=== PATIENT | female | born 1990 | race Caucasian/White ===

== ENCOUNTER 2016-12-26 00:42 | Emergency (ER) | payer OTHER ==
[~2016-12-26] VITALS: Ht 154.9 cm; Wt 87.1 kg
[~2016-12-26 00:42] MED LIST: ATIVAN0.5 M1 PO; FOLIC ACID1 M1 PO; IMPLANON; KETOROLAC TROME10 M1 PO; ONE DAILY MULT1 EAC2 PO; PERCOCET 5-3251 EACH PO; VITAMIN B-1100 MG PO
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
[2016-12-26 01:52] LABS: ABSOLUTE BASOPHIL COUNT 0.1 /CUMM (0.0-0.2); ABSOLUTE EOSINOPHIL COUNT 0 /CUMM (0.0-0.7); ABSOLUTE GRANULOCYTE CT 12.7 /CUMM (1.4-6.5); ABSOLUTE LYMPH COUNT 1.3 /CUMM (1.2-3.4); ABSOLUTE MONOCYTE COUNT 0.7 /CUMM (0.10-0.60); BASOPHIL % 0.4 % (0.0-2.0); EOSINOPHIL % 0.1 % (0-5); GRANULOCYTE % 85.8 % (42.2-75.2); HEMATOCRIT 48.2 % (37-47); MEAN CORPUSCULAR HGB CONC 33.7 G/DL (33.0-37.0); MEAN PLATELET VOLUME 8.1 FL (7.4-10.4); PLATELET COUNT 210 /CUMM (130-400); RBC DISTRIBUTION WIDTH 13.1 % (11.5-14.5); RED BLOOD CELL CT 4.92 /CUMM (4.20-5.40); WHITE BLOOD CELL COUNT 14.8 /CUMM (4.8-10.8)
[2016-12-26 13:49] VITALS: BP 134/82
== END 2016-12-26 14:08 | disposition left against medical advice (07) ==
LOC: ERH 00:42
PROVIDERS: Emergency Medicine
DX: F10.129 Alcohol abuse with intoxication, unspecified (principal); F14.10 Cocaine abuse, uncomplicated; F11.10 Opioid abuse, uncomplicated
CPT/HCPCS: 80307; 81025; 96374; G0480; J2310

== ENCOUNTER 2017-10-28 15:47 | Inpatient (IN) | payer OTHER ==
[~2017-10-28] VITALS: Ht 154.9 cm; Wt 104.3 kg
[~2017-10-28 15:47] MED LIST changes: +ABILIFY5 M1 PO; +ALBUTEROL2.5 MG/3 M INH; +ALBUTEROL2.5 MG/3 M INH/SOL; +AMOXICILLIN875 M1 PO; +MEDROL4 M2 PO; +METHADONE10 MG/1 M2 PO; +NEBULIZER MACHINE; +PREDNISONE10 M2 PO; +PREDNISONE5 M1 PO; +PROAIR HFA8.5 GM INH; +VALACYCLOVIR500 M1 PO
--- NOTE | 2017-10-28 16:10 | ED DYSPNEA/ASTHMA COMPLAINT ---
History of Present Illness General Chief Complaint: General Adult Stated Complaint: BIBA FOR DIFFICULTY BREATHING Source: patient, old records, EMS Exam Limitations: no limitations Vital Signs & Intake/Output Vital Signs & Intake/Output Vital Signs Date Time Temp Pulse Resp B/P B/P Pulse O2 O2 Flow FiO2 Mean Ox Delivery Rate 10/28 1708 91 Nasal 4.0L Cannula 10/28 1707 106 22 124/75 91 Nasal 4.0L Cannula 10/28 1701 92 Nasal 4.0L Cannula 10/28 1551 99.7 113 18 119/80 94 Nasal 2.0L Cannula Allergies Coded Allergies: hydrocodone (Intermediate, vomiting 06/11/16) ibuprofen (Intermediate, vomiting 06/11/16) Reconcile Medications Aripiprazole (Abilify) 5 MG TABLET 1 TAB PO QAM Mental . Bupropion HCl (Bupropion XL) 150 MG TAB.ER.24H 1 TAB PO DAILY MENTAL HEALTH ( Reported) Buspirone HCl 5 MG TABLET 1 TAB PO BID MENTAL HEALTH (Reported) Crisaborole (Eucrisa) 2 % OINT...G. 1 VAZQUEZ TOP BID SKIN (Reported) [IMPLANON] Unknown CONTROL (Reported) Methadone HCl 10 MG/ML ORAL.CONC 50 MG PO DAILY MAINTENCE (Reported) Valacyclovir HCl (Valacyclovir) 500 MG TABLET 1 TAB PO DAILY HERPES (Reported ) Triage Nurses Notes Reviewed? yes Onset: Evening Duration: hour(s):, constant, continues in ED Timing: recent history Severity: moderate Activities at Onset: rest Prior Episodes/Possible Cause: illness exposure Modifying Factors: Worsens With: movement. Associated Symptoms: anxiety, cough, weakness LMP (ages 10-50): unknown : No Patient currently breastfeeds: No HPI: 1 day prior to admission patient completed [facility] detox program [facility] [place]. Prior to leaving she complained of nausea and vomiting and later developed shortness of breath. Shortness of breath continues until prior to admission prompting call to 911. She denies fever chills chest pain headache dysuria rash bleeding. Past History Travel History Traveled to [place] past 21 day No Medical History Any Pertinent Medical History? see below for history Neurological: TBI EENT: NONE Cardiovascular: NONE Respiratory: TRACH Gastrointestinal: pancreatitis Hepatic: NONE Renal: nephrolithiasis Musculoskeletal: FRACTURE- LEFT LEG & JAW Psychiatric: anxiety, depression, ETOH herpes Endocrine: NONE Blood Disorders: NONE Cancer(s): NONE VISUAL MERCHANDISE MANAGER/Reproductive: genital herpes History of MRSA: No History of VRE: No History of CDIFF: No Surgical History Surgical History: non-contributory Psychosocial History Who do you live with Mother Services at Home None What is your primary language Kuwaiti Family History Family History, If Any: FATHER (lung cancer). . MOTHER Relation not specified for: Cancer of mouth Hx Contributory? No Review of Systems Review of Systems Constitutional: Reports: no symptoms. EENTM: Reports: no symptoms. Respiratory: Reports: see HPI, cough, short of breath. Cardiovascular: Reports: no symptoms. GI: Reports: see HPI, nausea, vomiting. Genitourinary: Reports: no symptoms. Musculoskeletal: Reports: no symptoms. Skin: Reports: no symptoms. Neurological/Psychological: Reports: no symptoms. Hematologic/Endocrine: Reports: no symptoms. Immunologic/Allergic: Reports: no symptoms. All Other Systems: Reviewed and Negative Physical Exam Physical Exam General Appearance: well developed/nourished, alert, awake, anxious, moderate distress, obese Head: atraumatic, normal appearance Eyes: Bilateral: normal appearance, PERRL, EOMI. Ears, Nose, Throat: normal pharynx, normal ENT inspection, hearing grossly normal Neck: normal inspection, supple, full range of motion, no midline tenderness Respiratory: chest non-tender, quiet respiration, decreased breath sounds, rhonchi, respiratory distress Cardiovascular: regular rate/rhythm, normal peripheral pulses, norml femoral pulses equa Peripheral Pulses: 4+ carotid (R), 4+ carotid (L) Gastrointestinal: normal bowel sounds, soft, non-tender, no organomegaly Extremities: normal inspection, normal capillary refill, normal range of motion, no edema, no ligament instability Neurologic/Psych: no motor/sensory deficits, awake, alert, oriented x 3, normal gait, normal mood/affect, pants closer II-XII nml as tested Skin: intact, normal color, diaphoresis Lymphatic: no anterior cervical brice Core Measures ACS in differential dx? No CVA/TIA Diagnosis No Sepsis Present: No Sepsis Focused Exam Completed? No Progress Differential Diagnosis: asthma, bronchitis, CHF, COPD, pulmonary embolism, pneumonia Plan of Care: Orders Procedure Date/time Status Regular Diet 10/28 D Active Patient Data 10/[address] CHEST W IV CONTRAST 10/28 1829 Active OXYGEN SETUP (GEN) 10/28 1800 Active Saline Lock 10/28 1800 Active Admit to inpatient 10/28 1800 Active Vital Signs 10/28 1800 Active Activity/Ambulation 10/28 1800 Active BLOOD CULTURE 10/28 1800 Active Code Status 10/28 1800 Active Intake & Output 10/28 1653 Active FingerStick- Glucose 10/28 1557 Active ARTERIAL BLOOD GAS (GEN) 10/28 1552 Active URINE DRUG SCREEN FOR ER ONLY 10/28 155 Complete TROPONIN LEVEL 10/28 1552 Complete MAGNESIUM 10/28 1552 Complete LIPASE 10/28 1552 Complete HUMAN BETA HCG SCREEN 10/28 155 Complete D-DIMER 10/28 155 Complete COMPREHENSIVE METABOLIC PANEL 10/28 155 Complete CBC WITHOUT DIFFERENTIAL 10/28 155 Complete B-TYPE NATRIURETIC PEP (BNP) 10/28 155 Complete EKG 10/28 155 Active Laboratory Tests 10/28/17 1628: Urine Opiates Screen < 100, Methadone Screen > 735 H, Barbiturate Screen < 60, Ur Phencyclidine Scrn < 6.00, Amphetamines Screen 107, U Benzodiazepines Scrn > 800 H, Urine Cocaine Screen 147, Urine Cannabis Screen < 5.00 10/28/17 1613: Anion Gap 12, Estimated GFR > 60, BUN/Creatinine Ratio 10.0, Glucose 148 H, Calcium 9.1, Magnesium 2.0, Total Bilirubin 0.4, AST 24, ALT 44, Alkaline Phosphatase 120, Troponin I < 0.01, [id number] Pept 1130 H, Total Protein 7.7, Albumin 4.5, Globulin 3.2, Albumin/Globulin Ratio 1.4, Lipase 23, Total Beta HCG NEGATIVE, D-Dimer High Sensitivty < 200, CBC w Diff NO MAN DIFF REQ, RBC 4.93, MCV 94.6, MCH 31.7 H, MCHC 33.5, RDW 14.0, MPV 8.5, Gran % 84.7 H, Lymphocytes % 10.3 L, Monocytes % 4.4, Eosinophils % 0, Basophils % 0.6, Absolute Granulocytes 6.4, Absolute Lymphocytes 0.8 L, Absolute Monocytes 0.3, Absolute Eosinophils 0, Absolute Basophils 0 10/28/17 1555: pH 7.35, pCO2 56 H, pO2 72 L, HCO3 30 H, ABG O2 Sat (Measured) 89.0 L, P-50 (Temp Corrected) Y, Carboxyhemoglobin 4.3, O2 Concentration % 3L, Temperature 99.7, O2 Delivery Method NC, Phlebotomy Draw Site RIGHT RADIAL Microbiology 10/28 1799 BLOOD: Blood Culture - ORD 10/28 1799 BLOOD: Blood Culture - ORD Diagnostic Imaging: Viewed by Me: Radiology Read. Discussed w/RAD: Radiology Read. Initial ED EKG: normal axis, normal intervals, normal p-waves, normal QRS complex, normal sinus rhythm, rate (sinus tachycardia) Prior EKG: unchanged Rhythm Strip: sinus tachycardia Departure Departure Time of Disposition: 1810 Disposition: STILL A PATIENT Condition: Stable Clinical Impression Primary Impression: Dyspnea and respiratory abnormalities Secondary Impressions: Acute respiratory acidosis, Aspiration pneumonia, Nausea and vomiting Referrals: Karlee VASQUEZ,Karlee (PCP/Family) Departure Forms: Customer Survey General Discharge Information Admission Note Spoke With: Sacha Foley MD Documentation of Exam: Documentation of any treatments & extenuating circumstances including Concerns Regarding Discharge (functional status, medication knowledge or non-compliance, living conditions, etc.) that warrant an admission rather than observation: Supplemental oxygen IV steroids IV antibiotics. Agonist nebs pulmonary evaluation medication adjustment continuing care discharge planning Critical Care Note Critical Care Note Critical Care Time: 30-74 min (45)
[2017-10-28 16:20] LABS: ABSOLUTE BASOPHIL COUNT 0 /CUMM (0.0-0.2); ABSOLUTE EOSINOPHIL COUNT 0 /CUMM (0.0-0.7); ABSOLUTE GRANULOCYTE CT 6.4 /CUMM (1.4-6.5); ABSOLUTE LYMPH COUNT 0.8 /CUMM (1.2-3.4); ABSOLUTE MONOCYTE COUNT 0.3 /CUMM (0.10-0.60); BASOPHIL % 0.6 % (0.0-2.0); EOSINOPHIL % 0 % (0-5); HEMATOCRIT 46.6 % (37-47); MEAN CORPUSCULAR HGB 31.7 PG (27.0-31.0); MEAN CORPUSCULAR HGB CONC 33.5 G/DL (33.0-37.0); MEAN CORPUSCULAR VOLUME 94.6 FL (81.0-99.0); MEAN PLATELET VOLUME 8.5 FL (7.4-10.4); PLATELET COUNT 189 /CUMM (130-400); RED BLOOD CELL CT 4.93 /CUMM (4.20-5.40); WHITE BLOOD CELL COUNT 7.6 /CUMM (4.8-10.8)
[2017-10-28 16:32] LABS: GRANULOCYTE % 84.7 % (42.2-75.2)
[2017-10-28] MEDS ORDERED: BUPROPION XL150 MG PO (17:47)
[2017-10-28] MEDS ORDERED: EUCRISA60 GM TOP (17:48)
[2017-10-28] MEDS ORDERED: BUSPIRONE HCL5 M1 PO (17:48)
--- NOTE | 2017-10-28 17:58 | RADIOLOGY REPORT ---
EXAMINATION: XR PORTABLE CHEST CLINICAL INFORMATION: Shortness of breath with nausea and vomiting. COMPARISON: Chest radiograph 05/28/2017. TECHNIQUE: Portable frontal view of the chest was obtained. FINDINGS: The lungs are underinflated but clear of focal consolidation. No pleural effusion. Cardiomediastinal silhouette and pulmonary vasculature are within normal limits. No acute osseous finding. IMPRESSION: No acute cardiopulmonary disease.
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
--- NOTE | 2017-10-28 19:56 | CT SCAN REPORT ---
EXAMINATION: CT CHEST WITH CONTRAST CLINICAL INFORMATION: Nausea and vomiting with shortness of breath. COMPARISON: CT chest 05/01/2017. Chest Dated earlier on 10/28/2017. TECHNIQUE: Multidetector volumetric CT imaging of the chest was obtained after the administration of 95 mL of Optiray 320 intravenous contrast without immediate adverse reactions. Axial MIP volume rendering provided. Sagittal and coronal reformatted images were obtained. DLP: 668.82 mGy-cm FINDINGS: VALIDATION SOFTWARE FACILITATOR: Unremarkable. LUNGS: The lungs are clear with no evidence of inflammation or nodules. Mild atelectatic changes of the dependent portions of the lungs bilaterally, more pronounced in the lower lobes. MEDIASTINUM: The mediastinum is normal. PLEURA: There is no pleural effusion. No pleural mass or thickening. AXILLA: No lymphadenopathy. UPPER ABDOMEN: Partially visualized upper abdomen is unremarkable. OSSEOUS STRUCTURES: No acute osseous findings. IMPRESSION: Minimal atelectatic changes of the dependent portion of both lungs. Otherwise unremarkable CT of the chest.
[2017-10-28 22:51] VITALS: BP 114/60
--- NOTE | 2017-10-28 23:51 | Admission Certification ---
Admission Certification Certification Statement - As attending physician, I certify that at the time of - admission, based on clinical presentation, severity of - symptoms, need for further diagnostic testing and - therapeutic interventions, and risk of adverse outcomes - without in-hospital treatment, in my clinical assessment, - this patient requires an acute hospital stay for a minimum - of two nights or longer. I have also considered psychsocial - factors such as support system, advanced age, financial - issues, cognitive issues, and failed out-patient treatments, - past re-admission history, safety of patient, and lack of - compliance as applicable. Specific rationale supporting this admission is: Acute hypoxic respiratory failure, substance abuse, risk of aspiration.
[2017-10-29 06:39] VITALS: BP 108/80
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
--- NOTE | 2017-10-29 09:06 | Patient Discharge Instructions ---
Discharge Instructions General Discharge Information You were seen/treated for: Nausea and vomiting possibly due to drug overdose Shortness of breath possibly due to drug overdose Watch for these problems: Nausea, vomiting, abdominal pain, drowsiness, breathing problem, altered mental status. If you experience any of these syptoms come to ED or call to pcp. Special Instructions: Follow up with PCP in one week Follow up with outpatient alcohol detox program and Substance abuse clinic as outpatient Diet Recommended Diet: Regular Activity Activity Self Limited: Yes Acute Coronary Syndrome Inclusion Criteria At DC or during hospital stay patient has or had the following: ACS DIAGNOSIS No Discharge Core Measures Meds if any: Prescribed or Continued at Discharge Meds if any: NOT Prescribed or Continued at Discharge Congestive Heart Failure Inclusion Criteria At DC or during hospital stay patient has or had the following: CHF DIAGNOSIS No Discharge Core Measures Meds if any: Prescribed or Continued at Discharge Meds if any: NOT Prescribed or Continued at Discharge Cerebrovascular accident Inclusion Criteria At DC or during hospital stay patient has or had the following: CVA/TIA Diagnosis No Discharge Core Measures Meds if any: Prescribed or Continued at Discharge Meds if any: NOT Prescribed or Continued at Discharge Venous thromboembolism Inclusion Criteria VTE Diagnosis No VTE Type NONE VTE Confirmed by (Test) NONE Discharge Core Measures - Per Current guidelines, there needs to be overlap - treatment for the first 5 days of Warfarin therapy. - If discharged on Warfarin prior to 5 days of - overlap therapy, the patient will need to be - assessed for post discharge needs including - *Post discharge parental anticoagulation - *Warfarin and/or parental anticoagulation education - *Follow up date to check INR post discharge At least 5 days overlap therapy as Inpatient No Meds if any: Prescribed or Continued at Discharge Note: Overlap Therapy is Warfarin and Anticoagulant Meds if any: NOT Prescribed or Continued at Discharge
[2017-10-29] MEDS ORDERED: VALACYCLOVIR500 M1 PO (11:01)
[2017-10-29] MEDS ORDERED: PROAIR HFA8.5 GM INH (11:05)
== END 2017-10-29 12:26 | DRG 812 ==
LOC: ERH 15:47 → ERHI 18:00 → EDBEDREQ 19:17 → ENRESERV 19:42 → ENTRNSPT 21:17 → EDTRNSPTSTS 21:20 → 2NA 21:28 → CMPTRNSPT 21:53 → 2NA 10-29 07:49 → ENPENDDIS 10-29 11:38 → 2NA 10-29 12:26
PROVIDERS: Emergency Medicine
DX: T42.4X1A Poisoning by benzodiazepines, accidental (unintentional), initial encounter (principal); E66.9 Obesity, unspecified; Z68.41 Body mass index [BMI] 40.0-44.9, adult; F10.20 Alcohol dependence, uncomplicated; F19.90 Other psychoactive substance use, unspecified, uncomplicated; Y90.0 Blood alcohol level of less than 20 mg/100 ml; J96.01 Acute respiratory failure with hypoxia; E87.4 Mixed disorder of acid-base balance; R11.2 Nausea with vomiting, unspecified; T40.3X1A Poisoning by methadone, accidental (unintentional), initial encounter; R41.82 Altered mental status, unspecified; J40 Bronchitis, not specified as acute or chronic; Z87.820 Personal history of traumatic brain injury; F41.9 Anxiety disorder, unspecified; F32.9 Major depressive disorder, single episode, unspecified; B00.9 Herpesviral infection, unspecified; Z79.891 Long term (current) use of opiate analgesic; F17.210 Nicotine dependence, cigarettes, uncomplicated; E87.2 Acidosis; E87.3 Alkalosis
CPT/HCPCS: 2NAP; 71045; 80307; 81001; 87040; 87070; 93005; 93010; 96360; 99291; G0480; J1650; J2310; J2930; J3490